=== PATIENT | male | born 1980 | race Caucasian/White ===

== ENCOUNTER 2016-08-21 16:54 | Emergency (ER) | payer OTHER ==
--- NOTE | 2016-08-21 17:37 | ED ---
Skin/Abscess/FB HPI - General Chief complaint: Skin/Abscess/Foreign Body Stated complaint: Skin Infection Time Seen by Provider: 08/21/16 17:24 Source: patient, RN notes reviewed Mode of arrival: ambulatory Limitations: no limitations - History of Present Illness Initial comments: Patient is a 36-year-old male presents to the emergency room for evaluation of left buttock infection. Patient states about a week ago he noticed a small pimple forming over his left buttock area. Patient states throughout the week the pain has gotten worse. Patient states he noticed a draining some pus throughout the week. Patient states he has had a history of an abscess about 2- 1/2 years ago. 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 Patient states he has been applying warm compresses and cleaning it daily. Patient states he's been having increasing pain and thought the area should be evaluated. Patient denies any fevers. Patient denies picking at the area. Denies nausea or vomiting. Patient denies headache or dizziness. Patient denies chest pain shortness of breath. Patient denies any other complaints. - Related Data Previous Rx's Medication Instructions Recorded Hydrocodone/Acetaminophen [[place] 1 each PO Q4HR PRN #60 tab 12/24/13 5-325] Sulfamethox-Tmp 800-160Mg [Bactrim 1 each PO Q12HR #28 tab 12/24/13 DS 800-160 mg] Ibuprofen [Motrin] 600 mg PO Q6HR PRN #20 tab 08/21/16 Sulfamethox-Tmp 800-160Mg [Bactrim 2 each PO Q12HR #56 tab 08/21/16 Ds] traMADol HCl [Ultram] 50 mg PO Q4H PRN #15 tab 08/21/16 Allergies Allergy/AdvReac Type Severity Reaction Status Date / Time No Known Allergies Allergy Verified 08/21/16 17:12 Review of Systems ROS Statement: Those systems with pertinent positive or pertinent negative responses have been documented in the HPI. ROS Other: All systems not noted in ROS Statement are negative. Past Medical History Past Medical History: No Reported History History of Any Multi-Drug Resistant Organisms: MRSA Date of last positivie culture/infection: 12/22/2013 MDRO Source:: Abdomen Additional Past Surgical History / Comment(s): Lymph node removal as a child Past Anesthesia/Blood Transfusion Reactions: No Reported Reaction Past Psychological History: No Psychological Hx Reported Smoking Status: Never smoker Past Alcohol Use History: None Reported Past Drug Use History: None Reported - Past Family History Mother Family Medical History: Cancer, Diabetes Mellitus Additional Family Medical History / Comment(s): skin cancer Father Additional Family Medical History / Comment(s): Raynaud's syndrome General Exam - General Exam Comments Initial Comments: Laying in exam room, no acute distress. Limitations: no limitations General appearance: alert, in no apparent distress Head exam: Present: atraumatic, normocephalic, normal inspection Eye exam: Present: normal appearance ENT exam: Present: normal exam Neck exam: Present: normal inspection Respiratory exam: Present: normal lung sounds bilaterally. Absent: respiratory distress Cardiovascular Exam: Present: regular rate, normal rhythm, normal heart sounds Extremities exam: Present: normal inspection Back exam: Present: normal inspection Neurological exam: Present: alert, oriented X3, CN II-XII intact, normal gait Psychiatric exam: Present: normal affect, normal mood Skin exam: Present: warm, dry, other (Abscess over left buttock near the gluteal cleft. Mild surrounding erythema and induration.) Course Vital Signs 08/21/16 17:09 Temperature 98.9 F Pulse Rate 98 Respiratory 20 Rate Blood Pressure 142/92 O2 Sat by Pulse 99 Oximetry Procedures - Incision & Drainage Consent Obtained: verbal consent Time Out Performed?: No Site: other (left gluteal cleft) Size (cm): 2 Anesthetic Used: lidocaine 1% Amount (mLs): 10 I&D Cleaning Method: Betadine Sterile Field Used?: No Scalpel Used: #11 I&D Drainage Obtained: Pus, Blood Packing: Iodoform Culture Obtained?: Yes Patient Tolerated Procedure: well, no complications Medical Decision Making - Medical Decision Making Patient is a 36-year-old male presents to the emergency room for evaluation of left gluteal abscess. Abscess was incised and drained. Culture pending. Patient placed on appropriate antibiotics. Discussed with patient that if symptoms do worsen to return for possible IV antibiotics. Advised patient to remove packing in 24 hours. Advised patient to have the area reevaluated by his primary care provider in 24-48 hours. Patient states he understands everything that was discussed with him. Case discussed with Dr. Bowden. Disposition Clinical Impression: Gluteal abscess Disposition: HOME SELF-CARE Condition: Good Instructions: Abscess Incision and Drainage (ED), Abscess (ED) Additional Instructions: Take antibiotics as directed. Take ibuprofen or Aleve as needed for pain. Take Ultram as needed for severe pain. With packing in 24 hours. Warm compresses or sitz baths. Please follow up with primary care provider in 1-2 days for reevaluation. If any new symptom arises or symptoms worsen, please return to ER as soon as possible. Prescriptions: Ibuprofen [Motrin] 600 mg PO Q6HR PRN #20 tab PRN Reason: Pain Sulfamethox-Tmp 800-160Mg [Bactrim Ds] 2 each PO Q12HR #56 tab traMADol HCl [Ultram] 50 mg PO Q4H PRN #15 tab PRN Reason: Pain Referrals: Padmaja Foy MD [REFERRING] - 1-2 days Time of Disposition: 18:03
[2016-08-21] MEDS ORDERED: traMADol 50 MG TAB PO STA (18:04)
[2016-08-21] MEDS ORDERED: SULFAMETHOX-TMP 800-160MG 1 EACH TAB PO STA (18:04)
[2016-08-21 18:44] VITALS: BP 118/79; PULSE 99; RESP 18; TEMP 97.4
== END 2016-08-21 18:44 | disposition home or self-care (01) ==
LOC: EC 16:54
DX: L02.31 Cutaneous abscess of buttock (principal)
CPT/HCPCS: 10060; 87070; 87077; 87186; 87205; 99283

== ENCOUNTER 2023-10-22 00:08 | Observation (INO) | payer OTHER ==
--- NOTE | 2023-10-22 00:28 | ED ---
Nausea/Vomiting/Diarrhea HPI - General Chief complaint: Nausea/Vomiting/Diarrhea Stated complaint: Chest pain, abd pain Time Seen by Provider: 10/22/23 00:26 Source: EMS, RN notes reviewed, old records reviewed Mode of arrival: EMS Limitations: no limitations - History of Present Illness Initial comments: This is a 43-year-old male to the ER today. He presents today for evaluation of significant chest pain and anxiety near syncope lightheadedness dizziness and not feeling well. Shaky. Patient was found to be significant hypertensive with no history of hypertension. Patient has severe abdominal pain chest pain MD complaint: nausea, vomiting, diarrhea, abdominal pain -: days(s) Associated Abdominal Pain: Yes Location: epigastric Severity: severe Severity scale (1-10): 9 Quality: stabbing Consistency: constant Improves with: none Worsens with: none - Related Data Previous Rx's Medication Instructions Recorded Losartan [Cozaar] 25 mg PO DAILY #30 tab 10/24/23 Ondansetron Odt [Zofran Odt] 4 mg PO Q8HR PRN #10 tab 10/24/23 Pantoprazole Sodium [Protonix] 40 mg PO DAILY #30 tab 10/24/23 hydrALAZINE HCL [Apresoline] 10 mg PO BID PRN #60 tab 10/24/23 HYDROcodone/APAP 5-325MG [[place] 1 tab PO Q6HR PRN 3 Days #6 tab 10/26/23 5-325] Allergies Allergy/AdvReac Type Severity Reaction Status Date / Time No Known Allergies Allergy Verified 10/23/23 16:05 Review of Systems ROS Statement: Those systems with pertinent positive or pertinent negative responses have been documented in the HPI. ROS Other: All systems not noted in ROS Statement are negative. Past Medical History Past Medical History: No Reported History History of Any Multi-Drug Resistant Organisms: MRSA Date of last positivie culture/infection: 08/21/16 MDRO Source:: buttock Additional Past Surgical History / Comment(s): Lymph node removal as a child Past Anesthesia/Blood Transfusion Reactions: No Reported Reaction Past Psychological History: No Psychological Hx Reported Past Alcohol Use History: None Reported Past Drug Use History: None Reported - Past Family History Mother Family Medical History: Cancer, Diabetes Mellitus Additional Family Medical History / Comment(s): skin cancer Father Additional Family Medical History / Comment(s): Raynaud's syndrome General Exam General appearance: alert, in no apparent distress, anxious Head exam: Present: atraumatic, normocephalic, normal inspection Eye exam: Present: normal appearance, PERRL, EOMI. Absent: scleral icterus, conjunctival injection, periorbital swelling ENT exam: Present: normal exam, mucous membranes moist Neck exam: Present: normal inspection. Absent: tenderness, meningismus, lymphadenopathy Respiratory exam: Present: normal lung sounds bilaterally. Absent: respiratory distress, wheezes, rales, rhonchi, stridor Cardiovascular Exam: Present: regular rate, normal rhythm, normal heart sounds. Absent: systolic murmur, diastolic murmur, rubs, gallop, clicks GI/Abdominal exam: Present: soft, normal bowel sounds. Absent: distended, tenderness, guarding, rebound, rigid Extremities exam: Present: normal inspection, full ROM, normal capillary refill. Absent: tenderness, pedal edema, joint swelling, calf tenderness Back exam: Present: normal inspection Neurological exam: Present: alert, oriented X3, CN II-XII intact Psychiatric exam: Present: normal affect, normal mood Skin exam: Present: warm, dry, intact, normal color. Absent: rash Course Vital Signs 10/22/23 10/22/23 10/22/23 00:09 01:03 01:55 Temperature 97.6 F Pulse Rate 60 66 74 Respiratory 17 20 16 Rate Blood Pressure 204/128 177/104 163/104 O2 Sat by Pulse 100 98 96 Oximetry 10/22/23 10/22/23 10/22/23 02:33 02:41 04:21 Temperature Pulse Rate 72 89 79 Respiratory 15 18 15 Rate Blood Pressure 164/108 147/99 130/85 O2 Sat by Pulse 98 93 L 93 L Oximetry 10/22/23 10/22/23 10/22/23 06:00 07:30 08:10 Temperature 97.9 F 98.0 F Pulse Rate 77 76 84 Respiratory 15 17 17 Rate Blood Pressure 104/70 112/76 109/87 O2 Sat by Pulse 96 97 98 Oximetry 10/22/23 10/22/23 10/22/23 09:00 10:10 11:17 Temperature 98.1 F Pulse Rate 80 73 80 Respiratory 17 18 16 Rate Blood Pressure 109/87 113/75 116/75 O2 Sat by Pulse 95 97 97 Oximetry 10/22/23 10/22/23 10/22/23 12:01 13:15 17:23 Temperature 97.9 F Pulse Rate 75 74 80 Respiratory 18 17 16 Rate Blood Pressure 114/70 113/76 O2 Sat by Pulse 98 96 96 Oximetry 10/22/23 10/22/23 18:25 19:40 Temperature 97.7 F 98.4 F Pulse Rate 76 65 Respiratory 17 16 Rate Blood Pressure 123/81 119/77 O2 Sat by Pulse 95 95 Oximetry - Reevaluation(s) Reevaluation #1: 10/22/23 02:20 Records reviewed Reevaluation #2: 10/22/23 02:20 Patient symptoms persist chest pain abdominal pain nausea vomiting 10/22/23 02:20 Blood pressure is mildly improved Reevaluation #3: 10/22/23 02:20 Patient informed of results questions answered Reevaluation #4: Was pt. sent in by a medical professional or institution (, PA, [employer] RE[employer]ATION MANAGER, urgent care, hospital, or [facility]...) When possible be specific @ -no Did you speak to anyone other than the patient for history (EMS, parent, family, police, friend...)? What history was obtained from this source @ -no Did you review nursing and triage notes (agree or disagree)? Why? @ -agree Are old charts reviewed (outside hosp., previous admission, EMS record, old EKG, old radiological studies, urgent care reports/EKG's, [facility] records)? Report findings @ -yes Differential Diagnosis (chest pain, altered mental status, abdominal pain women, abdominal pain men, vaginal bleeding, weakness, fever, dyspnea, syncope, headache, dizziness, GI bleed, back pain, seizure, CVA, palpatations, mental health, musculoskeletal)? @ -prior EKG interpreted by me (3pts min.). @ -yes X-rays interpreted by me (1pt min.). @ -yes negative for acute disease CT interpreted by me (1pt min.). @ -no U/S interpreted by me (1pt. min.). @ -no What testing was considered but not performed or refused? (CT, X-rays, U/S, labs)? Why? @ -none What meds were considered but not given or refused? Why? @ -none Did you discuss the management of the patient with other professionals (professionals i.e. , PA, [employer] RECREATION MANAGER, lab, RT, psych nurse, social sciences department chair, fur vault attendant, teacher, first officer, pillowcase folder)? Give summary @ -no Was smoking cessation discussed for >3mins.? @ -no Was critical care preformed (if so, how long)? @ -no Were there social determinants of health that impacted care today? How? (Homelessness, low income, unemployed, alcoholism, drug addiction, transportation, low edu. Level, literacy, decrease access to med. care, snf, rehab)? @ -none Was there de-escalation of care discussed even if they declined (Discuss DNR or withdrawal of care, Hospice)? DNR status @ -no What co-morbidities impacted this encounter? (DM, HTN, Smoking, COPD, CAD, Cancer, CVA, ARF, Chemo, Hep., AIDS, mental health diagnosis, sleep apnea, morbid obesity)? @ -none Was patient admitted / discharged? Hospital course, mention meds given and route, prescriptions, significant lab abnormalities, going to OR and other pertinent info. @ - 43 male to ER with severe chest pain patient will be admitted for severe and significant chest pain and uncontrolled hypertension new onset hypertension diagnosis, patient will be admitted for blood pressure control and chest pain observation Admitted Undiagnosed new problem with uncertain prognosis? @ -no Drug Therapy requiring intensive monitoring for toxicity (Heparin, Nitro, Insulin, Cardizem)? @ -no Were any procedures done? @ -no Diagnosis/symptom? @ -Chest pain hypertension Acute, or Chronic, or Acute on Chronic? @ -Acute Uncomplicated (without systemic symptoms) or Complicated (systemic symptoms)? @ -Complicated Side effects of treatment? @ -no Exacerbation, Progression, or Severe Exacerbation? @ -exacerbation Poses a threat to life or bodily function? How? (Chest pain, [place], [place], pneumonia, PE, COPD, DKA, ARF, appy, cholecystitis, CVA, Diverticulitis, Homicidal, Suicidal, threat to staff... and all critical care pts) @ -yes abnormal vital signs Reevaluation #5: Differential Chest Pain: Stable Angina, Unstable Angina, STEMI, NSTEMI Aortic Dissection, Pneumothorax, Musculoskeletal, Esophageal Spasm GERD, Cholecystitis, Pancreatitis, Zoster, this is not meant to be an all-inclusive list. - Consultations Consultation #1: Spoke with [facility] who agrees to admit this patient Medical Decision Making - Medical Decision Making 43 male to ER with severe chest pain patient will be admitted for severe and significant chest pain and uncontrolled hypertension new onset hypertension diagnosis, patient will be admitted for blood pressure control and chest pain observation - Lab Data Result diagrams: 10/26/23 05:26 10/26/23 05:26 Lab Results 10/22/23 10/22/23 10/22/23 Range/Units 00:19 00:19 00:19 WBC 10.6 (3.8-10.6) k/uL RBC 5.52 (4.30-5.90) m/uL Hgb 15.6 (13.0-17.5) gm/dL Hct 48.6 (39.0-53.0) % MCV 88.1 (80.0-100.0) fL MCH 28.2 (25.0-35.0) pg MCHC 32.0 (31.0-37.0) g/dL RDW 13.5 (11.5-15.5) % Plt Count 217 (150-450) k/uL MPV 9.0 Neutrophils % 67 % Lymphocytes % 22 % Monocytes % 6 % Eosinophils % 3 % Basophils % 1 % Neutrophils # 7.1 (1.3-7.7) k/uL Lymphocytes # 2.4 (1.0-4.8) k/uL Monocytes # 0.6 (0-1.0) k/uL Eosinophils # 0.3 (0-0.7) k/uL Basophils # 0.1 (0-0.2) k/uL PT 11.1 (10.0-12.5) sec INR 1.0 (<1.2) APTT 22.0 (22.0-30.0) sec D-Dimer 0.47 (<0.60) mg/L FEU Sodium 140 (137-145) mmol/L Potassium 4.5 (3.5-5.1) mmol/L Chloride 108 H (98-107) mmol/L Carbon Dioxide 24 (22-30) mmol/L Anion Gap 8 mmol/L BUN 23 H (9-20) mg/dL Creatinine 0.90 (0.66-1.25) mg/dL Est GFR (CKD-EPI)AfAm >90 (>60 ml/min/1.73 sqM) Est GFR (CKD-EPI)NonAf >90 (>60 ml/min/1.73 sqM) Glucose 118 H (74-99) mg/dL Calcium 9.1 (8.4-10.2) mg/dL Phosphorus 3.6 (2.5-4.5) mg/dL Magnesium 1.8 (1.6-2.3) mg/dL Total Bilirubin 0.7 (0.2-1.3) mg/dL AST 32 (17-59) U/L ALT 31 (4-49) U/L Alkaline Phosphatase 84 (38-126) U/L Troponin I (0.000-0.034) ng/mL NT-Pro-B Natriuret Pep <20 pg/mL Total Protein 7.0 (6.3-8.2) g/dL Albumin 4.3 (3.5-5.0) g/dL Lipase 90 (23-300) U/L 10/22/23 Range/Units 00:19 WBC (3.8-10.6) k/uL RBC (4.30-5.90) m/uL Hgb (13.0-17.5) gm/dL Hct (39.0-53.0) % MCV (80.0-100.0) fL MCH (25.0-35.0) pg MCHC (31.0-37.0) g/dL RDW (11.5-15.5) % Plt Count (150-450) k/uL MPV Neutrophils % % Lymphocytes % % Monocytes % % Eosinophils % % Basophils % % Neutrophils # (1.3-7.7) k/uL Lymphocytes # (1.0-4.8) k/uL Monocytes # (0-1.0) k/uL Eosinophils # (0-0.7) k/uL Basophils # (0-0.2) k/uL PT (10.0-12.5) sec INR (<1.2) APTT (22.0-30.0) sec D-Dimer (<0.60) mg/L FEU Sodium (137-145) mmol/L Potassium (3.5-5.1) mmol/L Chloride (98-107) mmol/L Carbon Dioxide (22-30) mmol/L Anion Gap mmol/L BUN (9-20) mg/dL Creatinine (0.66-1.25) mg/dL Est GFR (CKD-EPI)AfAm (>60 ml/min/1.73 sqM) Est GFR (CKD-EPI)NonAf (>60 ml/min/1.73 sqM) Glucose (74-99) mg/dL Calcium (8.4-10.2) mg/dL Phosphorus (2.5-4.5) mg/dL Magnesium (1.6-2.3) mg/dL Total Bilirubin (0.2-1.3) mg/dL AST (17-59) U/L ALT (4-49) U/L Alkaline Phosphatase (38-126) U/L Troponin I <0.012 (0.000-0.034) ng/mL NT-Pro-B Natriuret Pep pg/mL Total Protein (6.3-8.2) g/dL Albumin (3.5-5.0) g/dL Lipase (23-300) U/L - EKG Data -: EKG Interpreted by Me (EG is sinus 46 NH 163 QRS 105 QTc 393) - Radiology Data Radiology results: report reviewed (CT angio chest is negative for acute disease), image reviewed Disposition Clinical Impression: Nausea and vomiting, Chest pain, Hypertensive emergency, Hypertension Disposition: ADMITTED IP TO THIS [facility] Condition: Serious Is patient prescribed a controlled substance at d/c from ED?: No Time of Disposition: 02:20
[2023-10-22] MEDS: SODIUM CHLORIDE 0.9% 1,000 ML IV STA (00:36)
[2023-10-22 00:37] LABS: Basophils # (A) 0.1 k/uL (0-0.2); Basophils % (A) 1 %; Eosinophils # (A) 0.3 k/uL (0-0.7); Eosinophils % (A) 3 %; HCT 48.6 % (39.0-53.0); HGB 15.6 gm/dL (13.0-17.5); Lymphocytes # (A) 2.4 k/uL (1.0-4.8); Lymphocytes % (A) 22 %; MCH 28.2 pg (25.0-35.0); MCV 88.1 fL (80.0-100.0); Monocytes # (A) 0.6 k/uL (0-1.0); Monocytes % (A) 6 %; Neutrophils # (A) 7.1 k/uL (1.3-7.7); Neutrophils % (A) 67 %; Platelet Count 217 k/uL (150-450); RBC 5.52 m/uL (4.30-5.90); RDW 13.5 % (11.5-15.5); WBC 10.6 k/uL (3.8-10.6)
[2023-10-22] MEDS: ONDANSETRON 4 MG/2 ML VIAL IVP STA (00:38)
[2023-10-22] MEDS: MORPHINE SULFATE 4 MG/ML SYRINGE IVP STA ×2 (00:40→02:35)
[2023-10-22] MEDS: LABETALOL 5 MG/ML VIAL MDV IVP STA ×2 (00:43→02:37)
[2023-10-22 00:56] LABS: ALT 31 U/L (4-49); AST 32 U/L (17-59); African American GFR (CKD) >90 (>60 ml/min/1.73 sqM); Albumin 4.3 g/dL (3.5-5.0); Alkaline Phosphatase 84 U/L (38-126); Anion Gap 8 mmol/L; Blood Urea Nitrogen 23 mg/dL (9-20); Calcium 9.1 mg/dL (8.4-10.2); Carbon Dioxide 24 mmol/L (22-30); Chloride 108 mmol/L (98-107); Glucose 118 mg/dL (74-99); Lipase 90 U/L (23-300); Magnesium 1.8 mg/dL (1.6-2.3); Non-African American GFR(CKD) >90 (>60 ml/min/1.73 sqM); Phosphorus 3.6 mg/dL (2.5-4.5); Potassium 4.5 mmol/L (3.5-5.1); Sodium 140 mmol/L (137-145); Total Bilirubin 0.7 mg/dL (0.2-1.3)
[2023-10-22 01:00] LABS: Prothrombin Time 11.1 sec (10.0-12.5)
[2023-10-22 01:03] LABS: NT-Pro-B-Type Natriuretic Pept <20 pg/mL
[2023-10-22] MEDS: hydrALAZINE HCL 20 MG/ML 1 ML VIAL IVP STA (01:12)
--- NOTE | 2023-10-22 01:25 | CT ---
EXAMINATION TYPE: CT angio thor/abd pel aorta DATE OF EXAM: 10/22/2023 COMPARISON: Prior CT abdomen and pelvis 2013 HISTORY: abd pain CT DLP: 2154.8 mGycm. Automated Exposure Control for Dose Reduction was Utilized. CONTRAST: CTA scan of the thorax, abdomen and pelvis is performed without and with IV Contrast, patient injecte d with 100 mL of Isovue 370. Dissection protocol. FINDINGS: Vascular: Noncontrast images show no suspicious hyperdense material to suggest intramural hematoma. T here is bovine type aortic arch which is normal variant. No significant plaque or stenosis. No signif icant plaque or stenosis of celiac artery or SMA. Patent MICHELLE. Patent bilateral single renal arteries. Patent iliac and femoral artery branches bilaterally. No linear hypodensity to suggest dissection. N o AAA. LUNGS: The lungs are grossly clear, there is no concerning parenchymal mass or nodule identified. T here is no pleural effusion or pneumothorax seen. The tracheobronchial tree is patent. MEDIASTINUM: There are no greater than 1 cm hilar or mediastinal lymph nodes. No cardiomegaly or pe ricardial effusion is seen. LIVER/GB: Dependent 1.3 cm gallstone in gallbladder. Gallbladder shows no new surrounding inflammator y change or fluid. PANCREAS: No significant abnormality is seen. SPLEEN: No significant abnormality is seen. ADRENALS: No significant abnormality is seen. KIDNEYS: No significant abnormality is seen. BOWEL: Appendix within normal limits from cecum. Suboptimal evaluation of bowel without enteric contr ast. No abnormal small or large bowel dilatation. Areas of mild wall thickening are present could ref lect product of poor distention. GENITAL ORGANS: No gross abnormality seen. LYMPH NODES: No greater than 1cm abdominal or pelvic lymph nodes are appreciated. OSSEOUS STRUCTURES: No significant abnormality is seen. OTHER: No significant additional abnormality is seen. IMPRESSION: 1. No aortic dissection. 2. Gallstone without CT evidence for acute cholecystitis. 3. Mild bowel wall thickening could reflect products of poor distention, cannot exclude uncomplicated acute enterocolitis. Correlate clinically.
[2023-10-22] MEDS ORDERED: NITROGLYCERIN SL TABS 0.4 MG TAB SUBLINGUAL PRN (02:17)
[2023-10-22] MEDS ORDERED: MORPHINE SULFATE 4 MG/ML SYRINGE IV PRN (02:17)
[2023-10-22] MEDS ORDERED: ONDANSETRON 4 MG/2 ML VIAL IVP PRN (02:18)
[2023-10-22] MEDS: ASPIRIN 81 MG PO STA (02:29)
[2023-10-22] MEDS: LOSARTAN 25 MG TAB PO SCH (09:02)
--- NOTE | 2023-10-22 11:59 | CA ---
Transthoracic Echo Report Name: Jonathan Casanova Age: 43 Gender: M : 1980 Exam Date: 10/22/2023 09:30 Exam Location: [facility] Ht (in): 71 Wt (lb): 260 Ordering Physician: Jose Maurice DO Attending/Referring Phys: [id number], Josafat Jewel Staker Taina Swift RDCS Procedure CPT: Indications: CP Cardiac Hx: Technical Quality: Fair Contrast 1: Total Dose (mL): Contrast 2: Total Dose (mL): MEASUREMENTS (Male / Female) Normal Values 2D ECHO LV Diastolic Diameter PLAX 4.7 cm 4.2 - 5.9 / 3.9 - 5.3 cm LV Systolic Diameter PLAX 2.9 cm IVS Diastolic Thickness 1.3 cm 0.6 - 1.0 / 0.6 - 0.9 cm LVPW Diastolic Thickness 1.2 cm 0.6 - 1.0 / 0.6 - 0.9 cm LV Relative Wall Thickness 0.5 RV Internal Dim ED PLAX 2.5 cm LV Diastolic Volume MOD BP 98.3 cm??? 67 - 155 / 56 - 104 cm??? LV Systolic Volume MOD BP 36.2 cm??? 22 - 58 / 19 - 49 cm??? LV Ejection Fraction MOD BP 63.2 % >= 55 % LV Cardiac Index MOD BP 1807.1 cm???/min???m??? LV Diastolic Volume MOD 4C 86.8 cm??? LV Systolic Volume MOD 4C 30.3 cm??? LV Ejection Fraction MOD 4C 65.1 % LV Cardiac Index MOD 4C 1646.2 cm???/min???m??? LV Diastolic Length 4C 7.2 cm LV Systolic Length 4C 6.5 cm LV Diastolic Volume MOD 2C 104.9 cm??? LV Systolic Volume MOD 2C 41.8 cm??? LV Ejection Fraction MOD 2C 60.2 % LV Cardiac Index MOD 2C 1837.1 cm???/min???m??? LV Diastolic Length 2C 7.7 cm LV Systolic Length 2C 6.3 cm M-MODE Aortic Root Diameter MM 3.1 cm LA Systolic Diameter MM 3.7 cm LA Ao Ratio MM 1.2 AV Cusp Separation MM 2.2 cm DOPPLER Mitral E Point Velocity 81.8 cm/s Mitral A Point Velocity 89.8 cm/s Mitral E to A Ratio 0.9 MV Deceleration Time 307.6 ms TR Peak Velocity 217.0 cm/s TR Peak Gradient 18.8 mmHg Right Ventricular Systolic Press 23.8 mmHg FINDINGS Left Ventricle Left ventricular ejection fraction is estimated at 60-65%. Mildly increased septal wall thickness. Normal left ventricular wall motion. No obvious regional wall motion abnormalities. Left ventricular cavity size normal. Right Ventricle Normal right ventricular size and function. Right ventricular systolic pressure within normal limits. Right Atrium Normal right atrial size. Left Atrium Normal left atrial size. Mitral Valve Structurally normal mitral valve. No mitral stenosis. Trace mitral regurgitation. Aortic Valve Trileaflet aortic valve. No aortic valve stenosis or regurgitation. Tricuspid Valve Structurally normal tricuspid valve. No tricuspid stenosis. Trace tricuspid regurgitation. Pulmonic Valve Structurally normal pulmonic valve. Trace pulmonic regurgitation. No pulmonic stenosis. Pericardium No pericardial or pleural effusion. Aorta Normal size aortic root and proximal ascending aorta. CONCLUSIONS LVEF estimated at 60 to 65% Mild concentric LVH. Normal LV cavity size No obvious regional wall motion abnormality No significant valvular dysfunction No significant chamber size Previewed by: Dr Xander Michelle (Electronically Signed) Final Date: 22 October 2023 11:58
--- NOTE | 2023-10-22 12:10 | P.CRDCN ---
History of Present Illness History of present illness: HISTORY OF PRESENT ILLNESS: This is a 43-year-old male with a past medical history significant for obesity and hypertension. Patient does not follow with a catering sous chef. We have been aske d to see the patient in consultation for chest pain. Patient examined at the bedside in the emergency room. Patient states yesterday he started having chest pain around 8:00 in the evening. He states the pain continued to get worse. He states that he was nauseated and had 3 episodes of vomiting. He states he had his check his blood pressure at home using a neighbors cuff and his blood pressure was found to be 200/100. He does state that the pain seems to get worse after eating spicy foods, greasy foods, or foods with red sauce. He states the pain is not worse with exertion. He states he has been swimming in his pond daily for the past week without worsening chest pain. He does report having similar episodes like this in the past. Patient's blood pressure was found to be significantly elevated upon admission to the hospital. He states that he does not see a doctor because he does not have any insurance and does not routinely check his blood pressure at home because he does not have his own blood pressure cuff. He states that he used to donate plasma but he stopped doing this about a year ago because they told him his blood pressure was too high to continue to donate. He does report having a slight headache this morning. He is a non-smoker. He denies any alcohol or drug use. He is unsure if he has a family history of CAD. DIAGNOSTICS: - EKG reveals sinus bradycardia with no signs of acute ischemia. - CT angio: No aortic dissection. Gallstones without CT evidence of acute cholecystitis. Mild bowel wall thickening could reflect products of poor distention, cannot exclude uncomplicated acute enterocolitis. - Laboratory data: WBC 10.6. Hemoglobin 15.6. Platelet count 217. D-dimer 0.47. Sodium 140. Potassium 4.5. BUN 23. Creatinine 0.90. Troponin negative x 3. proBNP less than 20. - Current home cardiac medications include none. REVIEW OF SYSTEMS: At the time of my exam: CONSTITUTIONAL: Denies fever or chills. HEENT: Denies blurred vision, vision changes, or eye pain. Denies hemoptysis CARDIOVASCULAR: Denies chest pain. Denies orthopnea. Denies PND. Denies palpitations RESPIRATORY: Denies shortness of breath. GASTROINTESTINAL: Denies abdominal pain. Denies nausea or vomiting. HEMATOLOGIC: Denies bleeding disorders. GENITOURINARY: Denies any blood in urine. SKIN: Denies pruitis. Denies rash. PHYSICAL EXAM: VITAL SIGNS: Reviewed. GENERAL: Well-developed in no acute distress. HEENT: Head is normocephalic. Pupils are equal, round. Sclerae anicteric. Mucous membranes of the mouth are moist. Neck supple. No JVD or thyromegaly LUNGS: Respirations even and unlabored. Lungs essentially clear to auscultation bilaterally. HEART: Regular rate and rhythm. S1 and S2 heard. ABDOMEN: Soft. Nondistended. Nontender. EXTREMITIES: Normal range of motion. No clubbing or cyanosis. Peripheral pulses intact. No lower extremity edema NEUROLOGIC: Awake and alert. Oriented x 3. ASSESSMENT: Hypertensive urgency History of hypertension, not on medications on an outpatient basis due to lack of insurance Chest pain, atypical, may be gallbladder related, troponin negative x 3 Cholelithiasis without acute cholecystitis Obesity: BMI 36.6 PLAN: An acute coronary event has been ruled out Obtain 2D echo to assess cardiac structure and function Begin losartan 25 mg daily Patient encouraged to purchase a blood pressure cuff and monitor his blood pressure on an outpatient basis. Will plan for outpatient stress testing Patient encouraged to seek general surgery consultation if his symptoms continue as they may be related to gallbladder disease Further recommendations pending patient course Nurse practitioner note has been reviewed by physician. Signing provider agrees with the documented findings, assessment, and plan of care documented by PARARESCUE CRAFTSMAN as a scribe. Past Medical History Past Medical History: No Reported History History of Any Multi-Drug Resistant Organisms: MRSA Date of last positivie culture/infection: 08/21/16 MDRO Source:: buttock Additional Past Surgical History / Comment(s): Lymph node removal as a child Past Anesthesia/Blood Transfusion Reactions: No Reported Reaction Past Psychological History: No Psychological Hx Reported Past Alcohol Use History: None Reported Past Drug Use History: None Reported - Past Family History Mother Family Medical History: Cancer, Diabetes Mellitus Additional Family Medical History / Comment(s): skin cancer Father Additional Family Medical History / Comment(s): Raynaud's syndrome Medications and Allergies Home Medications Medication Instructions Recorded Confirmed Type No Known Home Medications 10/22/23 10/22/23 History Allergies Allergy/AdvReac Type Severity Reaction Status Date / Time No Known Allergies Allergy Verified 10/22/23 07:09 Physical Exam Vitals: Vital Signs Temp Pulse Resp BP Pulse Ox 10/22/23 08:10 84 17 109/87 98 10/22/23 07:30 98.0 F 76 17 112/76 97 10/22/23 06:00 97.9 F 77 15 104/70 96 10/22/23 04:21 79 15 130/85 93 L 10/22/23 02:41 89 18 147/99 93 L 10/22/23 02:33 72 15 164/108 98 10/22/23 01:55 74 16 163/104 96 10/22/23 01:03 66 20 177/104 98 10/22/23 00:09 97.6 F 60 17 204/128 100 Intake and Output 10/21/23 10/22/23 10/22/23 22:59 06:59 14:59 Other: Weight 117.934 kg Results 10/22/23 00:19 10/22/23 00:19 Cardiac Enzymes 10/22/23 10/22/23 10/22/23 Range/Units 00:19 00:19 03:28 AST 32 (17-59) U/L Troponin I <0.012 <0.012 (0.000-0.034) ng/mL Coagulation 10/22/23 Range/Units 00:19 PT 11.1 (10.0-12.5) sec APTT 22.0 (22.0-30.0) sec CBC 10/22/23 Range/Units 00:19 WBC 10.6 (3.8-10.6) k/uL RBC 5.52 (4.30-5.90) m/uL Hgb 15.6 (13.0-17.5) gm/dL Hct 48.6 (39.0-53.0) % Plt Count 217 (150-450) k/uL Comprehensive Metabolic Panel 10/22/23 Range/Units 00:19 Sodium 140 (137-145) mmol/L Potassium 4.5 (3.5-5.1) mmol/L Chloride 108 H (98-107) mmol/L Carbon Dioxide 24 (22-30) mmol/L BUN 23 H (9-20) mg/dL Creatinine 0.90 (0.66-1.25) mg/dL Glucose 118 H (74-99) mg/dL Calcium 9.1 (8.4-10.2) mg/dL AST 32 (17-59) U/L ALT 31 (4-49) U/L Alkaline Phosphatase 84 (38-126) U/L Total Protein 7.0 (6.3-8.2) g/dL Albumin 4.3 (3.5-5.0) g/dL Current Medications Generic Name Dose Route Start Last Admin Trade Name Freq PRN Reason Stop Dose Admin Aspirin 325 mg 10/23/23 09:00 Aspirin 325 Mg Tab PO DAILY ELIZABETH Morphine Sulfate 4 mg 10/22/23 02:17 Morphine Sulfate 4 Mg/Ml Syringe IV Q4HR PRN Chest Pain Nitroglycerin 0.4 mg 10/22/23 02:17 Nitroglycerin Sl Tabs 0.4 Mg Tab SUBLINGUAL Q5M PRN Chest Pain Ondansetron HCl 4 mg 10/22/23 02:18 Ondansetron 4 Mg/2 Ml Vial IVP Q6HR PRN Nausea And Vomiting Intake and Output 10/21/23 10/22/23 10/22/23 22:59 06:59 14:59 Other: Weight 117.934 kg 10/22/23 00:19 10/22/23 00:19
[2023-10-22] MEDS ORDERED: HYDROmorphone 0.5 MG/0.5 ML SYRINGE IVP PRN (13:08)
[2023-10-22] MEDS: PANTOPRAZOLE 40 MG/10 ML VIAL IVP SCH (13:19)
[2023-10-22 13:34] LABS: Cocaine Screen,Urine Not Detected (NotDetected); Opiate Screen,Urine Detected (NotDetected); Phencyclidine Screen,Urine Not Detected (NotDetected); Urn Cannabinoid Scrn Not Detected (NotDetected)
[2023-10-22 13:35] LABS: Amphetamine Screen,Urine Not Detected (NotDetected); Barbiturate Screen,Urine Not Detected (NotDetected); Benzodiazepines Screen,Urine Not Detected (NotDetected); Methadone Screen, Urine Not Detected (NotDetected); Oxycodone Screen, Urine Not Detected (NotDetected); Tricyclic Antidepressant,Urine Not Detected (NotDetected)
--- NOTE | 2023-10-22 13:52 | HP ---
HISTORY AND PHYSICAL CHIEF COMPLAINT: Lower chest and upper abdominal pain. HISTORY OF PRESENT ILLNESS: This is a 43-year-old gentleman with a past medical history of MRSA, was admitted with lower chest and abdominal pain. The patient was admitted for further evaluation and treatment. The patient's blood pressure is also fluctuating. The CAT scan showed possible cholelithiasis. Cardiology evaluation in progress. Initial cardiac workup is negative so far. PAST MEDICAL HISTORY: History of MRSA, rest of the history and chart is also reviewed. HOME MEDICATIONS: None. ALLERGIES: None. FAMILY HISTORY: History of coronary artery disease. SOCIAL HISTORY: No history of smoking or alcohol. REVIEW OF SYSTEMS: A 14-point review is negative except as mentioned earlier. PHYSICAL EXAMINATION: VITAL SIGNS: Pulse is 80, blood pressure 116/70, respirations 16. HEENT: Conjunctivae normal. NECK: No jugular venous distention. CARDIOVASCULAR: S1, S2. RESPIRATIONS: Diminished at the bases. No rhonchi, no crackles. ABDOMEN: Soft, obese, nontender. No masses LEGS: No edema. No swelling. NERVOUS SYSTEM: Nonfocal. LABORATORY DATA: Reviewed. ASSESSMENT: 1. Lower chest and upper abdominal pain, rule out coronary artery disease. 2. Possible cholelithiasis. 3. Labile hypertension. RECOMMENDATIONS AND DISCUSSION: This 43-year-old gentleman presented with multiple complex medical issues, we will monitor the patient closely. Cardiology consultation. Continue symptomatic treatment for the pain. Ultrasound of the abdomen. Surgical evaluation. The patient might require a stress test also to complete the workup later. Followup with primary. MMODL / IJN: [id number] /
--- NOTE | 2023-10-22 14:48 | P.GSCN ---
History of Present Illness Consult date: 10/22/23 History of present illness: CHIEF COMPLAINT: Abdominal and chest pain HISTORY OF PRESENT ILLNESS: This is a 43-year-old male who presents the hospital with complaints of abdominal and chest pain that started yesterday. Patient reports that pain occurred after he ate spicy chicken tacos. He had pain across the upper abdomen that moved up into the chest into the back. He had vomiting. Patient had elevated blood pressure in the ER, his systolic blood pressure was in the 200s. CT scan of the thoracic aorta and abdomen had reported no aortic dissection. Gallstone without CT evidence of acute cholecystitis. Mild bowel wall thickening could reflect products of poor distention cannot exclude acute enterocolitis. Patient reports no significant changes in his bowel movements. Patient reports that he has had similar symptoms like this in the past after eating spicy or greasy foods. Patient reports his abdominal pain has improved. Patient denies any cardiac history. PAST MEDICAL HISTORY: MRSA due to infected hair follicle in the suprapubic abdomen area status post I&D PAST SURGICAL HISTORY: Lymph node removal as a child MEDICATIONS: See below ALLERGIES: See below SOCIAL HISTORY: No illicit drug use. REVIEW OF SYSTEMS: CONSTITUTIONAL: Denies fever or chills. HEENT: Denies blurred vision, vision changes, or eye pain. Denies hemoptysis CARDIOVASCULAR: Denies chest pain or pressure. RESPIRATORY: No shortness of breath. GASTROINTESTINAL: See HPI for pertinent findings HEMATOLOGIC: Denies bleeding disorders. GENITOURINARY: Denies any blood in urine or increased urinary frequency. SKIN: Denies pruitis. Denies rash. PHYSICAL EXAM: VITAL SIGNS: Reviewed GENERAL: Well-developed in no acute distress. HEENT: No sclera icterus. ABDOMEN: Soft. Nondistended. Currently nontender NEUROLOGIC: Alert and oriented. Cranial nerves II through XII grossly intact. LABORATORY DATA: WBC 10.6 hgb 15.6 plt 217 Na 140 k 4.5 cr 0.90 Troponins negative x 3 sets Lipase 90 IMAGING: Thoracic aorta CT as stated above Echo reports EF of 60 to 65% ASSESSMENT: 1. Upper abdominal pain with chest pain 2. Cholelithiasis PLAN: -Patient is tentatively scheduled for laparoscopic cholecystectomy tomorrow with Dr. Rosenbaum depending on cardiac clearance -Continue cardiac workup -Low-fat diet today -N.p.o. after midnight -Follow-up on abdominal ultrasound results Physician Custom Grinder note has been reviewed by physician. Signing provider agrees with the documented findings, assessment, and plan of care. Past Medical History Past Medical History: No Reported History History of Any Multi-Drug Resistant Organisms: MRSA Year Discovered:: 08/21/16 MDRO Source:: buttock Additional Past Surgical History / Comment(s): Lymph node removal as a child Past Anesthesia/Blood Transfusion Reactions: No Reported Reaction Past Psychological History: No Psychological Hx Reported Past Alcohol Use History: None Reported Past Drug Use History: None Reported - Past Family History Mother Family Medical History: Cancer, Diabetes Mellitus Additional Family Medical History / Comment(s): skin cancer Father Additional Family Medical History / Comment(s): Raynaud's syndrome Medications and Allergies Home Medications Medication Instructions Recorded Confirmed Type No Known Home Medications 10/22/23 10/22/23 History Allergies Allergy/AdvReac Type Severity Reaction Status Date / Time No Known Allergies Allergy Verified 10/22/23 07:09 Surgical - Exam Vital Signs Temp Pulse Resp BP Pulse Ox 97.6 F 60 17 204/128 100 10/22/23 00:09 10/22/23 00:09 10/22/23 00:09 10/22/23 00:09 10/22/23 00:09 Results - Labs 10/22/23 00:19 10/22/23 00:19 Abnormal Lab Results - Last 24 Hours (Table) 10/22/23 10/22/23 Range/Units 00:19 13:15 Chloride 108 H (98-107) mmol/L BUN 23 H (9-20) mg/dL Glucose 118 H (74-99) mg/dL Urine Opiates Screen Detected H (NotDetected) Diabetes panel 10/22/23 Range/Units 00:19 Sodium 140 (137-145) mmol/L Potassium 4.5 (3.5-5.1) mmol/L Chloride 108 H (98-107) mmol/L Carbon Dioxide 24 (22-30) mmol/L BUN 23 H (9-20) mg/dL Creatinine 0.90 (0.66-1.25) mg/dL Glucose 118 H (74-99) mg/dL Calcium 9.1 (8.4-10.2) mg/dL AST 32 (17-59) U/L ALT 31 (4-49) U/L Alkaline Phosphatase 84 (38-126) U/L Total Protein 7.0 (6.3-8.2) g/dL Albumin 4.3 (3.5-5.0) g/dL Calcium panel 10/22/23 Range/Units 00:19 Calcium 9.1 (8.4-10.2) mg/dL Phosphorus 3.6 (2.5-4.5) mg/dL Albumin 4.3 (3.5-5.0) g/dL Pituitary panel 10/22/23 Range/Units 00:19 Sodium 140 (137-145) mmol/L Potassium 4.5 (3.5-5.1) mmol/L Chloride 108 H (98-107) mmol/L Carbon Dioxide 24 (22-30) mmol/L BUN 23 H (9-20) mg/dL Creatinine 0.90 (0.66-1.25) mg/dL Glucose 118 H (74-99) mg/dL Calcium 9.1 (8.4-10.2) mg/dL Adrenal panel 10/22/23 Range/Units 00:19 Sodium 140 (137-145) mmol/L Potassium 4.5 (3.5-5.1) mmol/L Chloride 108 H (98-107) mmol/L Carbon Dioxide 24 (22-30) mmol/L BUN 23 H (9-20) mg/dL Creatinine 0.90 (0.66-1.25) mg/dL Glucose 118 H (74-99) mg/dL Calcium 9.1 (8.4-10.2) mg/dL Total Bilirubin 0.7 (0.2-1.3) mg/dL AST 32 (17-59) U/L ALT 31 (4-49) U/L Alkaline Phosphatase 84 (38-126) U/L Total Protein 7.0 (6.3-8.2) g/dL Albumin 4.3 (3.5-5.0) g/dL
--- NOTE | 2023-10-22 17:14 | XR ---
EXAMINATION TYPE: XR chest 1V portable DATE OF EXAM: 10/22/2023 Comparison: None Clinical History: 43-year-old male CHF, chest pain and hypertension Findings: Heart normal size. Aorta and pulmonary vasculature within normal limits. Mild interstitial prominence without consolidation or pleural effusion. Impression: Mild interstitial prominence could reflect bronchitis or asthma. Otherwise, no acute process seen.
[2023-10-22] MEDS: HEPARIN SODIUM,PORCINE 5,000 UNIT/ML 1 ML VIAL SQ SCH (23:12)
--- NOTE | 2023-10-23 07:38 | US ---
EXAMINATION TYPE: US gallbladder DATE OF EXAM: 10/23/2023 COMPARISON: NONE CLINICAL INDICATION: Male, 43 years old with history of cholelithiasis; abn GB on CT, chest pain TECHNIQUE: Multiple sonographic images of the right upper quadrant are obtained. FINDINGS: EXAM MEASUREMENTS: Liver Length: 17.9 cm Gallbladder Wall: 0.4 cm CBD: 0.7 cm Right Kidney: 11.4 x 4.7 x 5.6 cm Pancreas: wnl Liver: intercostal views due to bowel gas Gallbladder: contracted with thickened wall, unable to view stone due to how contracted GB was Evidence for sonographic Call's sign: no CBD: wnl Right Kidney: wnl IMPRESSION: Limited study given the contracted gallbladder.
[2023-10-23] MEDS ORDERED: ASPIRIN 325 MG TAB PO SCH (09:00)
[2023-10-23 10:37] LABS: LDL Cholesterol,Calculated 116.7 mg/dL (0.0-131.0)
--- NOTE | 2023-10-23 12:03 | CA ---
Stress Echo Report Jonathan Casanova Age: 43 Gender: M : 1980 Exam Date: 10/23/2023 09:37 Exam Location: [facility] Ht (in): 71 Wt (lb): 260 Ordering Physician: Ness Montero Referring Physician: [id number] Assistant Elementary Teacher: Shakeel Restrepo Technologist Procedure CPT: Indication: CP ICD-9 Codes: Rhythm: Patient History: Cardiac Medications: SEE CHART Medications in past 24 hours: Contrast: Definity Stress Results Protocol: Robi Total dose(mL): 2 Exercise Duration (min:sec): 6:[address] Depression (mm): Angina Score: [place] Score: METS: 7.3 Resting HR: 84 Resting BP: 128 / 88 Peak HR: 167 Peak BP: 198 / 96 Max Predicted HR: 175 95 % Max Predicted HR Target HR: 149 Double Product: [id number] Stress Summary: BP Response: Reason for Termination: MAX EXERTION/TARGET HR Cardiac Symptoms: DIFFICULTY IN BREATHING ECG Analysis Resting ECG: Normal sinus rhythm, nonspecific T wave inversion in lead III Stress ECG: No significant ST or T wave changes that are diagnostic for ischemia by ST segment analysis Arrhythmia: No sustained arrhythmias or ectopic beats noted during the stress Echo Analysis Resting Echo: Normal global and segmental systolic function. No resting regional wall motion abnormality Peak Echo Analysis: No stress-induced regional wall motion abnormality. Normal augmentation of global and segmental systolic function MEASUREMENTS (Male/Female) Normal Values CONCLUSIONS Overall normal treadmill echo stress test Fair exercise tolerance for age achieving 7.3 METS Nonischemic ECG and echocardiographic response to treadmill exercise Normal hemodynamic and clinical response to treadmill exercise Dr Xander Michelle (Electronically Signed) Final Date: 23 October 2023 12:02
--- NOTE | 2023-10-23 13:45 | P.PN ---
Subjective Progress Note Date: 10/23/23 HISTORY OF PRESENT ILLNESS: This is a 43-year-old male with a past medical history significant for obesity and hypertension. Patient does not follow with a stone setter. We have been asked to see the patient in consultation for chest pain. Patient examined at the bedside in the emergency room. Patient states yesterday he started having chest pain around 8:00 in the evening. He states the pain continued to get worse. He states that he was nauseated and had 3 episodes of vomiting. He states he had his check his blood pressure at home using a neighbors cuff and his blood pressure was found to be 200/100. He does state that the pain seems to get worse after eating spicy foods, greasy foods, or foods with red sauce. He states the pain is not worse with exertion. He states he has been swimming in his pond daily for the past week without worsening chest pain. He does report having similar episodes like this in the past. Patient's blood pressure was found to be significantly elevated upon admission to the hospital. He states that he does not see a doctor because he does not have any insurance and does not routinely check his blood pressure at home because he does not have his own blood pressure cuff. He states that he used to donate plasma but he stopped doing this about a year ago because they told him his blood pressure was too high to continue to donate. He does report having a slight headache this morning. He is a non-smoker. He denies any alcohol or drug use. He is unsure if he has a family history of CAD. DIAGNOSTICS: - EKG reveals sinus bradycardia with no signs of acute ischemia. - CT angio: No aortic dissection. Gallstones without CT evidence of acute cholecystitis. Mild bowel wall thickening could reflect products of poor distention, cannot exclude uncomplicated acute enterocolitis. - Laboratory data: WBC 10.6. Hemoglobin 15.6. Platelet count 217. D-dimer 0.47. Sodium 140. Potassium 4.5. BUN 23. Creatinine 0.90. Troponin negative x 3. proBNP less than 20. - Current home cardiac medications include none. 10/22 Patient is seen today on the observation unit. He underwent stress echocardiogram today which revealed overall normal treadmill echo stress test. Fair exercise tolerance for age achieving 7.3 METS. Nonischemic EKG and chani ctrographic response to treadmill exercise. Normal hemodynamic and clinical response to treadmill exercise. Echocardiogram reveals EF of 60 to 65%, mild concentric left nuclear hypertrophy. Patient is denying having any chest pain or shortness of breath. He states he feels restless. Blood pressure 152/88, heart rate 80, pulse ox 96% on room air. Patient is scheduled for laparoscopic cholecystectomy later today. PHYSICAL EXAM: VITAL SIGNS: Reviewed. GENERAL: Well-developed in no acute distress. HEENT: Head is normocephalic. Pupils are equal, round. Sclerae anicteric. Mucous membranes of the mouth are moist. Neck supple. No JVD or thyromegaly LUNGS: Respirations even and unlabored. Lungs essentially clear to auscultation bilaterally. HEART: Regular rate and rhythm. S1 and S2 heard. ABDOMEN: Soft. Nondistended. Nontender. EXTREMITIES: Normal range of motion. No clubbing or cyanosis. Peripheral pulses intact. No lower extremity edema NEUROLOGIC: Awake and alert. Oriented x 3. ASSESSMENT: Hypertensive urgency History of hypertension, not on medications on an outpatient basis due to lack of insurance Chest pain, atypical, may be gallbladder related, troponin negative x 3 Cholelithiasis without acute cholecystitis Obesity: BMI 36.6 PLAN: An acute coronary event has been ruled out Continue losartan 25 mg daily Patient encouraged to purchase a blood pressure cuff and monitor his blood pressure on an outpatient basis. Patient is cleared for surgery from cardiology Cardiology will sign off this case and follow on an as-needed basis. Please reconsult for any new concerns. Patient may follow-up in the office in one to 2 weeks. Nurse practitioner note has been reviewed by physician. Signing provider agrees with the documented findings, assessment, and plan of care documented by DIRECTOR BUSINESS as a scribe. Objective - Vital Signs Vital signs: Vital Signs Temp 98.2 F 10/23/23 03:23 Pulse 71 10/23/23 03:23 Resp 15 10/23/23 03:23 BP 111/71 10/23/23 03:23 Pulse Ox 95 10/23/23 03:23 FiO2 Intake & Output 10/22/23 10/23/23 10/23/23 18:59 06:59 18:59 Other: Voiding Method Toilet # Voids 1 - Labs CBC & Chem 7: 10/22/23 00:19 10/22/23 00:19 Labs: Abnormal Lab Results - Last 24 Hours (Table) 10/22/23 Range/Units 13:15 Urine Opiates Screen Detected H (NotDetected)
[2023-10-23] MEDS: SCOPOLAMINE 1 MG/72 HR PATCH TRANSDERM STA (15:57)
[2023-10-23] MEDS: DEXAMETHASONE SOD PHOSPHATE 4 MG/ML 1 ML VIAL IVP STA (15:58)
[2023-10-23] MEDS: IV FLUID CONTINUATION 1,000 ML IV ONE (15:59)
[2023-10-23] MEDS ORDERED: NEOSTIGMINE 1 MG/ML 10 ML VIAL ONE (16:42)
[2023-10-23] MEDS ORDERED: SUCCINYLCHOLINE CHLORIDE 200 MG/10 ML VIAL IV ONE (16:42)
[2023-10-23] MEDS ORDERED: LIDOCAINE 1% INJ 10MG/ML (20 ML MDV) ONE (16:42)
[2023-10-23] MEDS ORDERED: ROCURONIUM 10 MG/ML (5 ML VIAL) IV ONE (16:42)
[2023-10-23] MEDS ORDERED: PROPOFOL 10 MG/ML 20 ML VIAL IV ONE (16:42)
[2023-10-23] MEDS ORDERED: GLYCOPYRROLATE 0.2 MG/ML 2 ML VIAL ONE (16:42)
[2023-10-23] MEDS ORDERED: HYDROmorphone (PF) 1 MG/ML ONE (16:42)
[2023-10-23] MEDS ORDERED: KETOROLAC 30 MG/ML 1 ML VIAL ONE (16:42)
[2023-10-23] MEDS ORDERED: MIDAZOLAM 2 MG/2 ML VIAL ONE (16:42)
[2023-10-23] MEDS ORDERED: METOPROLOL TARTRATE 5 MG/5 ML VIAL IVP ONE (16:42)
[2023-10-23] MEDS ORDERED: fentaNYL (PF) 50 MCG/ML 2 ML AMP ONE (16:42)
[2023-10-23] MEDS: BUPIVACAINE (PF) 0.25% 30 ML VIAL SQ ONE (17:00)
[2023-10-23] MEDS: LACTATED RINGERS 1,000 ML IV ONE (17:30)
[2023-10-23] MEDS ORDERED: HYDROmorphone 1 MG/ML 1 ML SYRINGE IM PRN (17:42)
[2023-10-23] MEDS: SODIUM CHLORIDE 0.9% 1,000 ML IV SCH (19:39)
[2023-10-23] MEDS: HYDROmorphone 1 MG/ML 1 ML SYRINGE IVP PRN (20:55)
[2023-10-23] MEDS ORDERED: hydrALAZINE HCL 10 MG TAB PO PRN (22:22)
--- NOTE | 2023-10-23 23:37 | PN ---
PROGRESS NOTE DATE OF SERVICE: 10/23/2023 SUBJECTIVE: This is a 43-year-old gentleman, who was admitted with lower chest pain, upper abdominal pain, is being closely monitored at this time. The stress echo was normal. The gallbladder ultrasound showed contracted gallbladder. No chest pain. No palpitation. OBJECTIVE: VITAL SIGNS: Pulse 80, blood pressure 152/88, respirations 16. HEENT: Conjunctivae normal. CARDIOVASCULAR: S1, S2. ABDOMEN: Soft, minimal diffuse discomfort in the upper quadrants. LABORATORY DATA: Noted. ASSESSMENT: 1. Lower chest and upper abdominal pain, coronary artery disease ruled out. 2. Possible cholelithiasis with chronic cholecystitis with contracted gallbladder. 3. Labile hypertension. RECOMMENDATIONS: Recommend to continue current medications, continue symptomatic treatment. Otherwise, possible laparoscopic cholecystectomy by surgery. Guarded prognosis. Further recommendations to follow. See orders for further details. MMODL / IJN: [id number] /
--- NOTE | 2023-10-24 02:52 | PN ---
PROGRESS NOTE DATE OF SERVICE: 10/23/2023 CHIEF COMPLAINT: Abdominal pain and chest pain. HISTORY OF PRESENT ILLNESS: The patient is admitted with symptomatic cholecystitis. The patient is scheduled for laparoscopic cholecystectomy today. He does report improvement in abdominal pain. He has no nausea or vomiting. He was evaluated by Cardiology service, underwent stress echo which was normal and Cardiology has cleared patient for surgery. OBJECTIVE: VITAL SIGNS: Stable. LABORATORY DATA: WBC is 10.6. ASSESSMENT: Symptomatic cholelithiasis and cholecystitis. PLAN: The patient is scheduled for laparoscopic cholecystectomy today with Dr. Rosenbaum. MMODL / IJN: [id number] /
[2023-10-24 04:33] LABS: Basophils % (A) 0 %; Eosinophils % (A) 0 %; HCT 49.3 % (39.0-53.0); HGB 15.8 gm/dL (13.0-17.5); Lymphocytes # (A) 0.8 k/uL (1.0-4.8); Lymphocytes % (A) 7 %; MCH 28.8 pg (25.0-35.0); Mean Platelet Volume 8.7; Monocytes # (A) 0.5 k/uL (0-1.0); Monocytes % (A) 4 %; Neutrophils # (A) 10.1 k/uL (1.3-7.7); Neutrophils % (A) 88 %; Platelet Count 245 k/uL (150-450); RBC 5.48 m/uL (4.30-5.90); RDW 13.5 % (11.5-15.5); WBC 11.4 k/uL (3.8-10.6)
[2023-10-24 05:01] LABS: ALT 54 U/L (4-49); AST 49 U/L (17-59); African American GFR (CKD) >90 (>60 ml/min/1.73 sqM); Albumin 4.1 g/dL (3.5-5.0); Albumin/Globulin Ratio 1.5; Alkaline Phosphatase 87 U/L (38-126); Anion Gap 6 mmol/L; Blood Urea Nitrogen 15 mg/dL (9-20); Calcium 9.4 mg/dL (8.4-10.2); Carbon Dioxide 24 mmol/L (22-30); Chloride 105 mmol/L (98-107); Globulin 2.7 g/dL; Glucose 111 mg/dL (74-99); Non-African American GFR(CKD) >90 (>60 ml/min/1.73 sqM); Potassium 4.6 mmol/L (3.5-5.1); Sodium 135 mmol/L (137-145); Total Bilirubin 1.1 mg/dL (0.2-1.3); Total Protein 6.8 g/dL (6.3-8.2)
[2023-10-24] MEDS: ENOXAPARIN 40 MG/0.4 ML SYRINGE SQ SCH (08:56)
--- NOTE | 2023-10-24 14:57 | P.PN ---
Subjective Progress Note Date: 10/24/23 the patient's postoperative day 1 from severe acute cholecystitis. Patient has complaints of pain and nausea. His KAJAL drain has some dressing was applied. On exam vital signs appear stable. Abdomen soft. Incisions clean and intact. Status post laparoscopic lysis. Despite discharged home on Friday or Friday. Hthe drain can be discharged removed prior to discharge. Objective - Vital Signs Vital signs: Vital Signs Temp 97.4 F L 10/24/23 07:52 Pulse 73 10/24/23 07:52 Resp 18 10/24/23 07:52 BP 146/99 10/24/23 07:52 Pulse Ox 98 10/24/23 07:52 FiO2 Intake & Output 10/23/23 10/24/23 10/24/23 18:59 06:59 18:59 Intake Total 1150 476 Output Total 20 905 20 Balance 1130 -905 456 Intake: IV 1150 Oral 476 Output: Drainage 80 20 Abdomen 80 20 Urine 825 Estimated Blood Loss 20 Other: Voiding Method Toilet Toilet Toilet Urinal # Voids 1 - Labs CBC & Chem 7: 10/24/23 03:49 10/24/23 03:49 Labs: Abnormal Lab Results - Last 24 Hours (Table) 10/24/23 10/24/23 Range/Units 03:49 03:49 WBC 11.4 H (3.8-10.6) k/uL Neutrophils # 10.1 H (1.3-7.7) k/uL Lymphocytes # 0.8 L (1.0-4.8) k/uL Sodium 135 L (137-145) mmol/L Glucose 111 H (74-99) mg/dL ALT 54 H (4-49) U/L
[2023-10-24] MEDS: PIPERACILLIN-TAZOBACTAM 3.375 GM in SODIUM CHLORIDE 0.9% 100 ML IVPB SCH (15:43)
--- NOTE | 2023-10-25 02:45 | P.PN ---
Subjective Progress Note Date: 10/24/23 This is a pleasant 43-year-old male who was recently admitted with chest pain and also hypertension uncontrolled being closely monitored with cardiology following. Blood pressure improved although continued having some diffuse abdominal pain and underwent ultrasound of the gallbladder showing a contracted gallbladder and evaluated by general surgery and is status post laparoscopic cholecystectomy. Patient also was evaluated by cardiology and underwent stress test which was negative recommending outpatient follow-up and blood pressure management. Patient has been cleared by cardiology. Patient is postoperative 1 day reporting some nausea with decreased oral intake and continued abdominal pain and discomfort. Encouraged to increase activity as tolerated and continued incentive spirometer use. General surgery following recommend monitoring overnight as gallbladder was quite distended. White count mildly elevated and will follow-up with repeat labs. Patient is afebrile at this time. Encouraged slowly advancing diet as tolerated Review of systems: Constitutional: No reports of fatigue, fever, or chills Cardiovascular: No reports of chest pain or palpitations Respiratory: No reports of shortness of breath or cough GI: reports of nausea, no reports of vomiting, no diarrhea and passing minimal gas, reports abdominal discomfort : No reports of dysuria or retention Neurovascular: reports of generalized weakness All medications have been reviewed PHYSICAL EXAMINATION: GENERAL: The patient is alert and oriented x4, Well developed, well nourished. Obese HEENT: Pupils are round and equally reacting to light. EOMI. no scleral icterus. No conjunctival pallor. Normocephalic, atraumatic. No pharyngeal erythema. No thyromegaly. CARDIOVASCULAR: S1 and S2 muffled PULMONARY: diminished breath sounds bilaterally with no wheezing or rhonchi noted. ABDOMEN: soft. tender on exam. obese. non-distended, normoactive bowel sounds. No palpable organomegaly. MUSCULOSKELETAL: No joint swelling or deformity. EXTREMITIES: No cyanosis, clubbing, or pedal edema. NEUROLOGICAL: Gross neurological examination did not reveal any focal deficits. SKIN: No rashes. Assessment: Chest pain, ruled out ACS, status post stress test which was negative Hypertension, uncontrolled Abdominal pain with concerns of possible cholelithiasis with chronic cholecystitis and contracted gallbladder, status post acute laparoscopic cholecystectomy on 10/23/2023 Leukocytosis, possibly reactive Obesity with a BMI of 36.3 GI prophylaxis DVT prophylaxis Full code Plan: Recommend to continue with current medications and management with general surgery cardiology following. Patient is status post stress test which was negative has been cleared by cardiology for outpatient follow-up and blood pressure management White count mildly elevated at 11 postoperative day 1 patient is afebrile, we will repeat labs in the a.m. Encouraged incentive spirometer at the bedside at least 10 times every hour while awake Encouraged to increase activity as tolerated and frequent walking levels Continue current diet and advance slowly as tolerated Discuss further with general surgery regarding discharge planning and recommend monitoring overnight with possible discharge planning in the next 24 hours Prognosis is guarded at this time The impression and plan of care has been dictated by Tiffanie Rodriguez, nurse practitioner as directed. Dr. Theodore MD I have performed a history and examination and MDM of this patient, discussed the same with the dictator, and agree with the dictator's assessment and plan as written ,documented as a scribe. Based on total visit time, I have performed more than 50% of the visit. Any additional findings or plans will be noted. Objective - Vital Signs Vital signs: Vital Signs Temp 97.4 F L 10/24/23 07:52 Pulse 73 10/24/23 07:52 Resp 18 10/24/23 07:52 BP 146/99 10/24/23 07:52 Pulse Ox 98 10/24/23 07:52 FiO2 Intake & Output 10/23/23 10/24/23 10/24/23 18:59 06:59 18:59 Intake Total 1150 476 Output Total 20 905 20 Balance 1130 -905 456 Intake: IV 1150 Oral 476 Output: Drainage 80 20 Abdomen 80 20 Urine 825 Estimated Blood Loss 20 Other: Voiding Method Toilet Toilet Toilet Urinal # Voids 1 - Labs CBC & Chem 7: 10/24/23 03:49 10/24/23 03:49 Labs: Abnormal Lab Results - Last 24 Hours (Table) 10/24/23 10/24/23 Range/Units 03:49 03:49 WBC 11.4 H (3.8-10.6) k/uL Neutrophils # 10.1 H (1.3-7.7) k/uL Lymphocytes # 0.8 L (1.0-4.8) k/uL Sodium 135 L (137-145) mmol/L Glucose 111 H (74-99) mg/dL ALT 54 H (4-49) U/L
[2023-10-25] MEDS: HYDROcodone/APAP 5-325MG 1 EACH TAB PO PRN (08:47)
[2023-10-25 09:19] LABS: Basophils # (A) 0.09 X 10*3/uL (0.00-0.10); Basophils % (A) 0.7 %; Eosinophils # (A) 0.16 X 10*3/uL (0.04-0.35); Eosinophils % (A) 1.3 %; HCT 45.7 % (39.6-50.0); HGB 15.1 g/dL (13.0-17.0); Lymphocytes # (A) 2.51 X 10*3/uL (0.90-5.00); Lymphocytes % (A) 20.8 %; MCH 29.1 pg (27.0-32.0); MCV 88.1 FL (80.0-97.0); Mean Platelet Volume 11.3 FL (9.5-12.2); Monocytes # (A) 1.02 X 10*3/uL (0.20-1.00); Monocytes % (A) 8.5 %; NRBC Per 100 WBC 0 X 10*3/uL (0.00-0.01); Neutrophils # (A) 8.23 X 10*3/uL (1.80-7.70); Neutrophils % (A) 68.5 %; Platelet Count 236 X 10*3/uL (140-440); RBC 5.19 X 10*6/uL (4.40-5.60); RDW 13.3 % (11.5-14.5); WBC 12.04 X 10*3/uL (4.50-10.00)
[2023-10-25 09:42] LABS: ALT 45 U/L (10-49); AST 31 U/L (14-35); Albumin 3.7 g/dL (3.8-4.9); Albumin/Globulin Ratio 1.54 Ratio (1.60-3.17); Alkaline Phosphatase 84 U/L (41-126); BUN/Creat Ratio 13.42 Ratio (12.00-20.00); Blood Urea Nitrogen 16.1 mg/dL (9.0-27.0); Calcium 8.9 mg/dL (8.7-10.3); Carbon Dioxide 25.6 mmol/L (21.6-31.8); Chloride 104 mmol/L (96-109); Globulin 2.4 g/dL (1.6-3.3); Glucose 107 mg/dL (70-110); Potassium 4.1 mmol/L (3.5-5.5); Sodium 139 mmol/L (135-145); Total Bilirubin 0.6 mg/dL (0.3-1.2); Total Protein 6.1 g/dL (6.2-8.2)
[2023-10-25] MEDS: SENNOSIDES-DOCUSATE SODIUM 1 EACH TAB PO SCH (12:16)
--- NOTE | 2023-10-25 21:01 | PN ---
PROGRESS NOTE DATE OF SERVICE: 10/25/2023 SUBJECTIVE: This 43-year-old gentleman who was admitted after chest pain and cholecystectomy, had laparoscopic cholecystectomy. No chest pain. No palpitation. White count is 12.04. The patient is on broad-spectrum antibiotics. OBJECTIVE: VITAL SIGNS: Pulse is 92, blood pressure 113/82, respirations 20. CHEST: Clear to auscultation. CARDIOVASCULAR: S1, S2. ABDOMEN: Soft, obese, status post surgery. LABORATORY DATA: WBC 12.05. ASSESSMENT: 1. Acute cholelithiasis and cholecystitis, status post laparoscopic cholecystectomy. 2. Chest pain, coronary artery disease ruled out. Negative stress test. 3. Hypertension. 4. Multiple complex medical issues. RECOMMENDATIONS: Recommend to continue current management and repeat labs. Otherwise, I would also recommend continue the antibiotics. Incentive spirometry. DVT prophylaxis. Closely follow with surgery. Further recommendations to follow. We will cut down the IV fluids. BHAVESH / MELECION: [id number] /
--- NOTE | 2023-10-25 22:47 | P.PN ---
Subjective Patient seen and evaluated at bedside. Patient has mild abdominal pain, denies nausea, fevers, chills, shortness of breath or chest pain. Objective - Vital Signs Vital signs: Vital Signs Temp 98.8 F 10/25/23 20:00 Pulse 82 10/25/23 20:00 Resp 20 10/25/23 20:00 BP 139/84 10/25/23 20:00 Pulse Ox 95 10/25/23 20:00 FiO2 Intake & Output 10/25/23 10/25/23 10/26/23 06:59 18:59 06:59 Intake Total 354 Output Total 90 35 Balance -90 319 Intake: Oral 354 Output: Drainage 90 35 Abdomen 90 35 Other: Voiding Method Toilet Toilet # Voids 4 2 # Bowel Movements 1 - Exam gen: nad cv: rrr pul: non labored breathing abd: surgical incision c/d/i, min tenderness to palpation, no guarding - Labs CBC & Chem 7: 10/25/23 04:05 10/25/23 04:05 Labs: Abnormal Lab Results - Last 24 Hours (Table) 10/25/23 10/25/23 Range/Units 04:05 04:05 WBC 12.04 H (4.50-10.00) X 10*3/uL Neutrophils # 8.23 H (1.80-7.70) X 10*3/uL Monocytes # 1.02 H (0.20-1.00) X 10*3/uL Total Protein 6.1 L (6.2-8.2) g/dL Albumin 3.7 L (3.8-4.9) g/dL Albumin/Globulin Ratio 1.54 L (1.60-3.17) Ratio Assessment and Plan Assessment: 43 yo male s/p cholecystectomy w/ day drain placement -continue reg diet -day drain serosang output -continue incentive spirometer use -encourage ambulation
[2023-10-26 07:36] VITALS: BP 129/84; PULSE 58; RESP 16; TEMP 98.8
[2023-10-26 09:35] LABS: Basophils # (A) 0.07 X 10*3/uL (0.00-0.10); Basophils % (A) 0.7 %; Eosinophils % (A) 3.1 %; HGB 14.6 g/dL (13.0-17.0); Lymphocytes # (A) 2.43 X 10*3/uL (0.90-5.00); Lymphocytes % (A) 24.9 %; MCH 28.2 pg (27.0-32.0); MCHC 32.4 g/dL (32.0-37.0); MCV 86.9 FL (80.0-97.0); Mean Platelet Volume 10.9 FL (9.5-12.2); Monocytes # (A) 0.88 X 10*3/uL (0.20-1.00); NRBC Per 100 WBC 0 X 10*3/uL (0.00-0.01); Neutrophils # (A) 6.05 X 10*3/uL (1.80-7.70); Neutrophils % (A) 61.9 %; Platelet Count 220 X 10*3/uL (140-440); RBC 5.18 X 10*6/uL (4.40-5.60); RDW 13.2 % (11.5-14.5); WBC 9.77 X 10*3/uL (4.50-10.00)
--- NOTE | 2023-10-26 09:42 | P.DS ---
Providers Date of admission: 10/22/23 02:18 Expected date of discharge: 10/26/23 Attending physician: Armand Jaimes Consults: 10/22/23 02:17 Consult Physician Urgent Consulting Provider: Brea Geller Consult Reason/Comments: cp Do you want consulting provider notified?: Yes 10/22/23 13:07 Consult Physician Routine Consulting Provider: Tejinder Rosenbaum Consult Reason/Comments: cholelithiasis? Do you want consulting provider notified?: Yes Primary care physician: Stated None Hospital Course: Patient underwent laparoscopic cholecystectomy during this hospital stay for acu te cholecystitis. Doing much better currently. Tolerating diet. 2 bowel movements yesterday. Pain down to a 1-2 out of 10. KAJAL remains serosanguineous. Liver enzymes yesterday normal. White blood cell count today normal. He would like to go home. Will discharge. Remove drain prior to discharge. Follow-up as outpatient. Patient Condition at Discharge: Serious Plan - Discharge Summary New Discharge Prescriptions: New Ondansetron Odt [Zofran Odt] 4 mg PO Q8HR PRN #10 tab PRN Reason: Nausea hydrALAZINE HCL [Apresoline] 10 mg PO BID PRN #60 tab PRN Reason: Blood Pressure - High Losartan [Cozaar] 25 mg PO DAILY #30 tab Pantoprazole Sodium [Protonix] 40 mg PO DAILY #30 tab Discharge Medication List Losartan [Cozaar] 25 mg PO DAILY #30 tab 10/24/23 [Rx] Ondansetron Odt [Zofran Odt] 4 mg PO Q8HR PRN #10 tab 10/24/23 [Rx] Pantoprazole Sodium [Protonix] 40 mg PO DAILY #30 tab 10/24/23 [Rx] hydrALAZINE HCL [Apresoline] 10 mg PO BID PRN #60 tab 10/24/23 [Rx] Follow up Appointment(s)/Referral(s): Xander Michelle MD [Medical Doctor] - 1 Week Katya Bay MD [STAFF PHYSICIAN] - 1 Week Tejinder Rosenbaum MD [STAFF PHYSICIAN] - 1 Week Patient Instructions/Handouts: *Surgery [facility] - Scopalamine Patch Instructions Discharge Disposition: HOME SELF-CARE
[2023-10-26 10:19] LABS: ALT 33 U/L (10-49); AST 24 U/L (14-35); Albumin 3.6 g/dL (3.8-4.9); Albumin/Globulin Ratio 1.57 Ratio (1.60-3.17); Alkaline Phosphatase 77 U/L (41-126); BUN/Creat Ratio 12.91 Ratio (12.00-20.00); Blood Urea Nitrogen 14.2 mg/dL (9.0-27.0); Calcium 9.1 mg/dL (8.7-10.3); Carbon Dioxide 23.8 mmol/L (21.6-31.8); Chloride 105 mmol/L (96-109); Globulin 2.3 g/dL (1.6-3.3); Glucose 102 mg/dL (70-110); Potassium 3.8 mmol/L (3.5-5.5); Sodium 139 mmol/L (135-145); Total Bilirubin 0.6 mg/dL (0.3-1.2); Total Protein 5.9 g/dL (6.2-8.2)
--- NOTE | 2023-10-27 02:27 | PN ---
PROGRESS NOTE DATE OF SERVICE: 10/26/2023 SUBJECTIVE: This is a 43-year-old gentleman, who was admitted after laparoscopic cholecystomy. Improving. No chest pain. No palpitation. PHYSICAL EXAMINATION: VITAL SIGNS: Pulse is 58, blood pressure n respirations 16. CHEST: Clear to auscultation. CARDIOVASCULAR: S1, S2. ABDOMEN: Soft. Status post surgery. LABORATORY DATA: Reviewed. ASSESSMENT: 1. Acute cholelithiasis and cholecystitis, status post laparoscopic cholecystectomy. 2. Chest pain, coronary artery disease ruled out, negative stress test. 3. Hypertension. 4. Multiple complex medical issues. RECOMMENDATIONS: Recommend to continue current management. Dr. Gay has recommended the patient be discharged and recommend close followup with surgery. Primary Physician, Dr. Aldana [facility]. JO-ANNL / MELECION: [id number] / MTDD
== END 2023-10-26 11:15 | disposition home or self-care (01) ==
LOC: EC 00:08 → 3SCARD 02:18 → 6NMEDSUR 13:27
PROVIDERS: ADMIT Hospitalist; ATTEND Hospitalist
DX: K80.12 Calculus of gallbladder with acute and chronic cholecystitis without obstruction (principal); I10 Essential (primary) hypertension; Z83.3 Family history of diabetes mellitus; Z90.49 Acquired absence of other specified parts of digestive tract; Z86.14 Personal history of Methicillin resistant Staphylococcus aureus infection; Z82.49 Family history of ischemic heart disease and other diseases of the circulatory system; Z80.8 Family history of malignant neoplasm of other organs or systems; Z68.36 Body mass index [BMI] 36.0-36.9, adult; E66.9 Obesity, unspecified
CPT/HCPCS: 96372 ×4; 96366; 96367; 96376; 96361; 96365; 96375; 99285; 36415; 93005; 93306; 85379; 88304; 83880; 80061; 80053 ×4; 83690; 83735; 84100; 84484; 85025 ×4; 85610; 85730; 80306; 71045; 76705; 71275; 74174; G0378 ×6; C8930; J2543 ×3; J2250; J0330; J2270; J0360; J1644; J1100; J2710; J0690; J2405 ×2; J2001; J1650 ×3; J3010; J1885; Q9957; J1170 ×2; J2704; C9113 ×5; Q9967; J0665; J1920; J1596; 93351

== ENCOUNTER 2024-03-10 10:19 | Day surgery (SDC) | payer OTHER ==
[2024-03-10 10:33] VITALS: TEMP 97
[2024-03-10] MEDS: IV FLUID CONTINUATION 1,000 ML IV ONE (10:35)
[2024-03-10] MEDS: LACTATED RINGERS 1,000 ML IV SCH (10:41)
[2024-03-10] MEDS ORDERED: PROPOFOL 10 MG/ML 20 ML VIAL IV ONE (11:11)
--- NOTE | 2024-03-10 11:24 | P.PCN ---
Date of Procedure: 03/10/24 Procedure(s) Performed: BRIEF HISTORY: Patient is a 44-year-old pleasant white male scheduled for an elective colonoscopy as a part of screening for colon cancer/positive Cologuard. His brother was diagnosed with colon cancer at age 50. PROCEDURE PERFORMED: Colonoscopy snare polypectomy. PREOPERATIVE DIAGNOSIS: Screening for colon cancer/positive Cologuard/family history of colon cancer. IV sedation per Anesthesia. PROCEDURE: After informed consent was obtained, the patient, was brought into the endoscopy unit. IV sedation was administered by Anesthesia under continuous monitoring. Digital rectal examination was normal. Initially the Olympus CF-160 flexible video colonoscope was then inserted in the rectum, gradually advanced into the cecum without any difficulty. Careful examination was performed as the scope was gradually being withdrawn. Ileocecal valve and the appendiceal orifice were visualized and appeared normal. Prep was excellent. Mucosa of the cecum, ascending colon, transverse colon, descending colon, sigmoid colon, appeared normal. The proximal rectum there was a 1 cm polyp that was removed by snare polypectomy. Retroflexion was performed in the rectum and no lesions were seen. The patient tolerated the procedure well. IMPRESSION: 1 cm proximal rectal polyp status post polypectomy Rest of the colon appeared normal RECOMMENDATIONS: Findings of this examination were discussed with the patient as well as his family.. Was advised to follow with the biopsy results and have repeat colonoscopy in 3 years.
[2024-03-10 11:53] VITALS: RESP 18
[2024-03-10 12:01] VITALS: BP 113/73; PULSE 69
== END 2024-03-10 12:18 | disposition home or self-care (01) ==
LOC: ORWHC2ENDO 10:19
PROVIDERS: ATTEND Internal Medicine Gastroenterology
DX: Z12.11 Encounter for screening for malignant neoplasm of colon (principal); C20 Malignant neoplasm of rectum; I10 Essential (primary) hypertension; Z79.899 Other long term (current) drug therapy; Z80.0 Family history of malignant neoplasm of digestive organs
CPT/HCPCS: 88305; 88342; 88341; 45385; J2704

== ENCOUNTER → 2024-06-21 | Outpatient (CLI) | payer OTHER ==
--- NOTE | 2024-06-21 10:41 | US ---
EXAMINATION TYPE: US thyroid st tissue head/neck DATE OF EXAM: 06/21/2024 COMPARISON: NONE CLINICAL INDICATION: Male, 44 years old with history of R22.1 LEFT PALPABLE NONDULE; Red area at the left upper neck from shaving x3 months TECHNIQUE: Soft tissue palpable FINDINGS: Hypoechoic area at the left submandibular measuring 0.4 x 0.4 x 0.4 cm with a visible trac t to the skin surface and mild vascularity may be a small lymph node. IMPRESSION: Appears to be a small lymph node at the level of the palpable abnormality. Other etiolog ies could include subcutaneous small abscess. [facility], , 06/21/2024 10:38 AM
== END | disposition home or self-care (01) ==
LOC: RADUSWWP 10:11
PROVIDERS: ATTEND Family Medicine
DX: R22.1 Localized swelling, mass and lump, neck (principal)
CPT/HCPCS: 76536

== ENCOUNTER → 2024-07-07 | Outpatient (CLI) | payer OTHER ==
[2024-07-07 18:35] LABS: HCT 45.1 % (39.6-50.0); MCH 29.1 pg (27.0-32.0); MCHC 33.3 g/dL (32.0-37.0); MCV 87.6 FL (80.0-97.0); Mean Platelet Volume 11.3 FL (9.5-12.2); NRBC Per 100 WBC 0 X 10*3/uL (0.00-0.01); Platelet Count 245 X 10*3/uL (140-440); RBC 5.15 X 10*6/uL (4.40-5.60); RDW 12.6 % (11.5-14.5); WBC 9.63 X 10*3/uL (4.50-10.00)
[2024-07-07 18:42] LABS: Blood Urea Nitrogen 14.5 mg/dL (9.0-27.0); Glucose 72 mg/dL (70-110)
[2024-07-07 18:43] LABS: Calcium 9.5 mg/dL (8.7-10.3); Carbon Dioxide 27.8 mmol/L (21.6-31.8); Chloride 103 mmol/L (96-109); Potassium 4.4 mmol/L (3.5-5.5); Sodium 141 mmol/L (135-145)
== END | disposition home or self-care (01) ==
LOC: LABWHC1 14:13
PROVIDERS: ATTEND Surgery
DX: Z01.812 Encounter for preprocedural laboratory examination (principal)
CPT/HCPCS: 36415; 80048; 85027